=== PATIENT | male | born 1990 | race Caucasian/White ===

== ENCOUNTER → 2023-01-13 | Outpatient (CLI) | payer BC ==
[2023-01-13 14:14] LABS: HCT 45.3 % (39.6-50.0); MCH 29.9 pg (27.0-32.0); MCHC 33.1 d/dL (32.0-37.0); MCV 90.2 FL (80.0-97.0); Mean Platelet Volume 11.1 FL (9.5-12.2); NRBC Per 100 WBC 0 X 10*3/uL (0.00-0.01); Platelet Count 258 X 10*3/uL (140-440); RBC 5.02 X 10*6/uL (4.40-5.60); RDW 12.4 % (11.5-14.5); WBC 7.63 X 10*3/uL (4.50-10.00)
[2023-01-13 15:55] LABS: Follicle Stimulating Hormone 3.3 mIU/mL; Luteinizing Hormone 6.1 mIU/mL
== END | disposition home or self-care (01) ==
LOC: LABWHC1 07:52
PROVIDERS: ATTEND Urology
DX: E29.1 Testicular hypofunction (principal)
CPT/HCPCS: 36415; 83001; 83002; 84146; 84403; 85027